=== PATIENT | male | born 1935 | race Caucasian/White ===

== ENCOUNTER 2016-09-22 11:32 | Outpatient (CLI) | payer MEDICARE, OTHER ==
[2015-01-28 09:55] VITALS: BP 144/84
--- NOTE | 2016-09-22 15:48 | Diagnostic Imaging Report ---
LIANA ACEVEDO [facility] [address] [facility] [address] [address] Report Submission Date: Sep 22, 2016 3:15:01 PM AUTOMATED EQUIPMENT ENGINEER TECHNICIAN Patient Study Name: RIANA BRUNNER Date: Sep 22, 2016 11:44:13 AM AUTOMATED EQUIPMENT ENGINEER TECHNICIAN Modality Type: CR Gender: M Description: SPINE : 33 Institution: [facility] Physician: LIANA ACEVEDO Lumbar spine 3 views Clinical history low back pain Technique AP lateral lumbosacral junction Findings: There are 5 lumbar vertebra. L5 is sacralized. Disc space narrowing at all levels. Lower lumbar spine degenerative facet arthritis is present. The sacrum is intact. Impression: Lumbar spondylosis No acute lumbar spine pathology Sacralized L5 Electronically signed on Sep 22, 2016 3:15:01 PM AUTOMATED EQUIPMENT ENGINEER TECHNICIAN by: Lobo GUILLERMO
== END 2016-09-22 12:00 ==
LOC: RAD 11:32
PROVIDERS: ATTEND Family Medicine
DX: M54.41 Lumbago with sciatica, right side (principal)
CPT/HCPCS: 72100

== ENCOUNTER 2016-10-04 09:24 | Outpatient (CLI) | payer MEDICARE, OTHER ==
[2015-01-28 09:55] VITALS: BP 144/84
--- NOTE | 2016-10-04 13:42 | Diagnostic Imaging Report ---
Name: RIANA BRUNNER ~~ ~~ : 33 ~~ Acc #: [id number]~~ DOS: Oct 04, 2016 10:23:29 AM CDT ~~ Mod: MR ~~ Desc: MRI L SPINE W/O CONTRAST 2 of 2 LIANA ACEVEDO~ [address] [address] ~ ~ ~ ~ Report Submission Date: Oct 04, 2016 1:11:58 PM CDT Patient ~ Study Name: RIANA BRUNNER ~ Date: Oct 04, 2016 10:23:29 AM CDT ~ Modality Type: MR Gender: M ~ Description: MRI L SPINE W/O CONTRAST : 33 ~ Institution: [facility] Physician: LIANA ACEVEDO ~ ~ ~ ~ Magnetic resonance imaging of the lumbar spine without contrast History: Low back and right lower extremity pain Findings: Routine sagittal and axial images of the lumbar spine are obtained without contrast and are compared to the September 22, 2016 radiographs. L5 is partially sacralized. Using this numbering designation, the conus medullaris terminates at L1. Extensive degenerative endplate signal abnormality is noted at multiple levels. 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 Heterogeneous , slightly increased marrow signal is present diffusely. L1/L2: Moderate disc space narrowing, moderate diffuse disc bulging, mild bilateral facet arthropathy, and borderline central canal stenosis. L2/L3: Marked disc space narrowing moderate diffuse disc bulging, minimal left facet arthropathy, and severe central canal stenosis. L3/4: Mild disc space narrowing, moderate diffuse disc bulging, mild bilateral facet arthropathy, bilateral foraminal narrowing, and mild central canal stenosis. L4/L5: Mild disc space narrowing, moderate to marked diffuse disc bulging, mild to moderate right facet arthropathy, right greater than left foraminal stenosis , bilateral lateral recess stenosis, and spinal canal narrowing. L5/S1: Rudimentary intervertebral disc space. Spinal canal and neural foramina are patent. Impression: 1. L5 is partially sacralized. 2. L2/L3 spondylosis with severe central canal stenosis. 3. L3/L4 spondylosis with mild central canal stenosis. 4. L4/L5 spondylosis with bilateral foraminal and lateral recess stenosis. 5. Additional multilevel spondylosis as described. 6. Diffuse marrow signal abnormality present. Some of the abnormality is related to degenerative change but there is also underlying red marrow conversion or marrow replacement. Recommend further clinical evaluation. ~ Electronically signed on Oct 04, 2016 1:11:58 PM CDT by: Tanner GUILLERMO
== END 2016-10-04 09:25 ==
LOC: RAD 09:24
PROVIDERS: ATTEND Family Medicine
DX: M54.42 Lumbago with sciatica, left side (principal)
CPT/HCPCS: 72148

== ENCOUNTER 2017-06-30 09:08 | Outpatient (CLI) | payer MEDICARE, OTHER ==
[2015-01-28 09:55] VITALS: BP 144/84
== END 2017-06-30 11:16 ==
LOC: LAB 09:08
PROVIDERS: ATTEND Family Medicine
DX: Z12.5 Encounter for screening for malignant neoplasm of prostate (principal)
CPT/HCPCS: 36415; G0103

== ENCOUNTER 2017-10-20 07:58 | Outpatient (CLI) | payer MEDICARE, OTHER ==
[2015-01-28 09:55] VITALS: BP 144/84
[2017-10-20 08:17] LABS: BASOPHILS % 0.6 (0.0-1.5); EOSINOPHILS % 2.5 % (0.0-6.8); MEAN CORPUSCULAR VOLUME 89.7 fl (80.0-100.0); MONOCYTES % 5.5 % (0.0-11.0); NEUTROPHILS # 3.9 # k/uL (1.4-7.7)
[2017-10-20 08:53] LABS: eGFR (African) > 60; eGFR (Non-African) > 60
== END 2017-10-20 08:00 ==
LOC: LAB 07:58
PROVIDERS: ATTEND Physician Assistant
DX: R42 Dizziness and giddiness (principal)
CPT/HCPCS: 36415; 80053; 85025

== ENCOUNTER 2018-03-09 08:26 | Outpatient (CLI) | payer MEDICARE, OTHER ==
[2015-01-28 09:55] VITALS: BP 144/84
--- NOTE | 2018-03-09 19:18 | Diagnostic Imaging Report ---
LIANA ACEVEDO [facility] [address] [facility] [address] [address] Report Submission Date: Mar 09, 2018 9:06:52 AM CDT Patient Study Name: RIANA BRUNNER Date: Mar 09, 2018 8:29:15 AM CDT Modality Type: DX Gender: M Description: SPINE : 33 Institution: [facility] Physician: LIANA ACEVEDO Examination: Cervical spine History: C-SPINE, NECK PAIN INTO RT SHOULDER AFTER CLEANING OUT GUTTERS ON 03/04/18 (Hx) Comparison exams: None available Findings: 4 views of the cervical spine demonstrate normal height. No anterior compression. No abnormal listhesis. Scattered osteophytes and disc space narrowing. No odontoid abnormality. No prevertebral abnormality Impression: Degenerative changes. No acute appearing osseous abnormality. If patient is experiencing neurologic symptoms, consider obtaining MRI to further evaluate. Electronically signed on Mar 09, 2018 9:06:52 AM CDT by: Gutierrez GUILLERMO
== END 2018-03-09 08:28 ==
LOC: RAD 08:26
PROVIDERS: ATTEND Family Medicine
DX: M54.2 Cervicalgia (principal)
CPT/HCPCS: 72040

== ENCOUNTER 2018-06-22 08:59 | Outpatient (CLI) | payer MEDICARE, OTHER ==
[2015-01-28 09:55] VITALS: BP 144/84
[2018-06-22 09:29] LABS: BASOPHILS % 0.3 (0.0-1.5); EOSINOPHILS % 1.6 % (0.0-6.8); MEAN CORPUSCULAR HEMOGLOBIN 30.3 pg (28.0-34.0); MONOCYTES % 4.1 % (0.0-11.0); NEUTROPHILS # 5.1 # k/uL (1.4-7.7)
[2018-06-22 09:45] LABS: eGFR (Non-African) > 60
== END 2018-06-22 09:00 ==
LOC: LAB 08:59
PROVIDERS: ATTEND Physician Assistant
DX: R53.1 Weakness (principal); R68.83 Chills (without fever)
CPT/HCPCS: 36415; 80053; 85025